=== PATIENT | female | born 1955 | race American Indian/Alaskan Native ===

== ENCOUNTER 2017-07-16 07:34 | Outpatient (CLI) | payer BC ==
--- NOTE | 2017-07-16 14:51 | Mammography Report ---
BILATERAL DIGITAL SCREENING MAMMOGRAM with CAD: 07/16/17 07:34:00 CLINICAL: Routine screening. COMPARISON:06/30/16 FINDINGS: The breasts are heterogeneously dense, which may obscure small masses. No mass, architectural distortion or suspicious calcifications. IMPRESSION: No mammographic evidence of malignancy. BI-RADS CATEGORY: 1 - - Negative RECOMMENDATION: Routine mammographic screening in one year. COMMENT: Patient follow-up letters are generated by our [employer] application.
== END 2017-07-16 07:35 | disposition home or self-care (01) ==
LOC: MAMMO 07:34
PROVIDERS: ATTEND Internal Medicine
DX: Z12.31 Encounter for screening mammogram for malignant neoplasm of breast (principal)
CPT/HCPCS: 77067

== ENCOUNTER 2018-07-17 09:29 | Outpatient (CLI) | payer BC ==
--- NOTE | 2018-07-17 16:01 | Mammography Report ---
BILATERAL DIGITAL SCREENING MAMMOGRAM with CAD : 07/17/18 09:29:00 CLINICAL: Routine screening. COMPARISON:07/16/17 and mammograms going back to 01/22/13 FINDINGS: The breasts are heterogeneously dense, which may obscure small masses.The fibroglandular pattern with asymmetric left retroareolar fibroglandular densities is unchanged compared to previous exams. No mass, architectural distortion or suspicious calcifications. IMPRESSION: No mammographic evidence of malignancy. BI-RADS CATEGORY: 2 -- Benign RECOMMENDATION: Routine mammographic screening in one year. COMMENT: Patient follow-up letters are generated by our [employer] application.
== END 2018-07-17 09:30 | disposition home or self-care (01) ==
LOC: MAMMO 09:29
PROVIDERS: ATTEND Internal Medicine
DX: Z12.31 Encounter for screening mammogram for malignant neoplasm of breast (principal)
CPT/HCPCS: 77067

== ENCOUNTER 2019-07-25 08:24 | Outpatient (CLI) | payer MEDICARE, OTHER ==
--- NOTE | 2019-07-28 08:06 | Mammography Report ---
BILATERAL DIGITAL SCREENING MAMMOGRAM WITH CAD INDICATION: Routine screening mammography. TECHNIQUE: Digital bilateral 2D mammography was obtained in the craniocaudal and mediolateral obliq ue projections. This examination was interpreted with the benefit of Computer-Aided Detection analysi s. COMPARISON: 07/17/2018, 07/16/2017, 06/30/2016. FINDINGS: Breast Density: The breasts are heterogeneously dense, which may obscure small masses. No suspicious mass, microcalcifications, or architectural distortion. Stable left subareolar breast g lobal asymmetry. Long-term stability would support a benign etiology. IMPRESSION: No evidence of breast malignancy. Recommend routine screening mammogram in one year. BI-RADS Category 2: Benign. No mammographic evidence of malignancy. Recommend routine screening ma mmography in one year. A "normal" or negative report should not discourage follow up or biopsy of a clinically significant f inding. A written summary of these findings will be mailed to the patient. The patient will be entered into a mammography reporting system which will generate a reminder letter for the patient's next appointmen t at the appropriate interval. The [employer] recommends yearly mammograms starting at age 40 and continuing as l melvin as a woman is in good health. Breast MRI is recommended for women with an approximate 20-25% or greater lifetime risk of breast cancer, including women with a strong family history of breast or ova crow cancer or who have been treated for Hodgkin's disease. Signer Name: Aashish Scott MD Signed: 07/28/2019 8:01 AM Workstation Name: [id number]
== END 2019-07-25 08:25 | disposition home or self-care (01) ==
LOC: MAMMO 08:24
PROVIDERS: ATTEND Internal Medicine
DX: Z12.31 Encounter for screening mammogram for malignant neoplasm of breast (principal)
CPT/HCPCS: 77067

== ENCOUNTER 2020-08-10 10:01 | Outpatient (CLI) | payer MEDICARE ==
--- NOTE | 2020-08-10 17:10 | Mammography Report ---
DIGITAL SCREENING MAMMOGRAM WITH CAD, 08/10/2020 CLINICAL INFORMATION / INDICATION: Routine screening mammography. SCREENING MAMMO TECHNIQUE: Digital bilateral 2D mammography was obtained in the craniocaudal and mediolateral obliqu e projections. This examination was interpreted with the benefit of Computer-Aided Detection analysis . COMPARISON: 07/25/2019 and 07/17/2018. FINDINGS: Breast Density: The breasts are heterogeneously dense, which may obscure small masses. No dominant mass, suspicious calcifications, or architectural distortion in either breast. Stable global asymmetry in the left subareolar breast. IMPRESSION: No mammographic evidence of malignancy. Follow up recommendation: Routine yearly BI-RADS Category 2: Benign. A "normal" or negative report should not discourage follow up or biopsy of a clinically significant f inding. A written summary of these findings will be mailed to the patient. The patient will be entered into a mammography reporting system which will generate a reminder letter for the patient's next appointmen t at the appropriate interval. The [employer] recommends yearly mammograms starting at age 40 and continuing as l melvin as a woman is in good health. Breast MRI is recommended for women with an approximate 20-25% or greater lifetime risk of breast cancer, including women with a strong family history of breast or ova crow cancer or who have been treated for Hodgkin's disease. Signer Name: Derek Solis MD Signed: 08/10/2020 5:06 PM Workstation Name: [id number]
== END 2020-08-10 10:02 | disposition home or self-care (01) ==
LOC: MAMMO 10:01
PROVIDERS: ATTEND Internal Medicine
DX: Z12.31 Encounter for screening mammogram for malignant neoplasm of breast (principal)
CPT/HCPCS: 77067

== ENCOUNTER 2021-08-11 10:22 | Outpatient (CLI) | payer MEDICARE ==
--- NOTE | 2021-08-12 09:16 | Mammography Report ---
DIGITAL SCREENING MAMMOGRAM WITH CAD, 08/11/2021 CLINICAL INFORMATION / INDICATION: Routine screening mammography. SCREENING MAMMOGRAM TECHNIQUE: Digital bilateral 2D mammography was obtained in the craniocaudal and mediolateral obliqu e projections. This examination was interpreted with the benefit of Computer-Aided Detection analysis . COMPARISON: 08/10/2020 and 07/25/2019 FINDINGS: Breast Density: The breasts are heterogeneously dense, which may obscure small masses. No dominant mass, suspicious calcifications, or architectural distortion in either breast. IMPRESSION: No mammographic evidence of malignancy. Follow up recommendation: Routine yearly BI-RADS Category 1: NEGATIVE A "normal" or negative report should not discourage follow up or biopsy of a clinically significant f inding. A written summary of these findings will be mailed to the patient. The patient will be entered into a mammography reporting system which will generate a reminder letter for the patient's next appointmen t at the appropriate interval. The [employer] recommends yearly mammograms starting at age 40 and continuing as l melvin as a woman is in good health. Breast MRI is recommended for women with an approximate 20-25% or greater lifetime risk of breast cancer, including women with a strong family history of breast or ova crow cancer or who have been treated for Hodgkin's disease. Signer Name: Chace Witt MD Signed: 08/12/2021 9:11 AM Workstation Name: [id number]
== END 2021-08-11 10:23 | disposition home or self-care (01) ==
LOC: MAMMO 10:22
PROVIDERS: ATTEND Internal Medicine
DX: Z12.31 Encounter for screening mammogram for malignant neoplasm of breast (principal)
CPT/HCPCS: 77067